=== PATIENT | male | born 1970 ===

== ENCOUNTER 2020-07-15 07:49 | Day surgery (SDC) | payer OTHER ==
[~2020-07-15] VITALS: Ht 182.9 cm; Wt 74.5 kg
[~2020-07-15 07:49] MED LIST: AMLO5 PO; HYDCHL12.5 PO; VERA120 PO
--- NOTE | 2020-07-15 13:24 | NUR ---
REPORT GIVEN TO KAROLYN BURGER
--- NOTE | 2020-07-15 13:36 | NUR ---
ASSUMED CARE AT 1320 A/O DENIES PAIN OR NAUSEA WARM BLANKETS PLACED FOR COMFORT HE DID C/O BEING COLD
--- NOTE | 2020-07-15 14:16 | NUR ---
Patient up to Ambulate independently. Gait steady. Discharge instructions reviewed with patient. Patient verbalizes understanding. Copy given to patient to take home. Patient States Post-Procedure ride home has been arranged. Discharged via wheelchair to private car for ride home.
== END 2020-07-15 14:58 | disposition home or self-care (01) ==
LOC: ORSCMMR 07:49 → ORD 11:30 → ORSCMMR 14:58
PROVIDERS: Surgery
PROC: 0YUA4JZ Supplement Bilateral Inguinal Region with Synthetic Substitute, Percutaneous Endoscopic Approach (ICD-10-PCS; principal; 2020-07-15 09:30)
PROC: 0WQF0ZZ Repair Abdominal Wall, Open Approach (ICD-10-PCS; principal; 2020-07-15 09:30)
DX: K40.20 Bilateral inguinal hernia, without obstruction or gangrene, not specified as recurrent (principal); K42.9 Umbilical hernia without obstruction or gangrene; I10 Essential (primary) hypertension; F17.221 Nicotine dependence, chewing tobacco, in remission; Z79.899 Other long term (current) drug therapy
CPT/HCPCS: A9270; C1727; C1781; J0690; J1100; J1885; J2250; J2370; J2405; J2704; J2710; J3010; J7120

== ENCOUNTER → 2022-10-15 | Outpatient (CLI) | payer OTHER | END | disposition home or self-care (01) | LOC: LAB 13:43 → LAB SHORT 13:43 | DX: J02.9 Acute pharyngitis, unspecified (principal); J06.9 Acute upper respiratory infection, unspecified | CPT/HCPCS: 87081 ==

== ENCOUNTER → 2022-10-24 | Outpatient (CLI) | payer OTHER | END | disposition home or self-care (01) | LOC: PLD 10:06 → LAB SHORT 10:06 | DX: C44.612 Basal cell carcinoma of skin of right upper limb, including shoulder (principal) | CPT/HCPCS: 88305 ==

== ENCOUNTER 2022-11-05 08:27 | Day surgery (SDC) | payer OTHER ==
[~2022-11-05] VITALS: Ht 182.9 cm; Wt 81.1 kg
--- NOTE | 2022-11-05 09:49 | NUR ---
Patient up to Ambulate independently. Gait steady. Discharge instructions reviewed with patient. Patient verbalizes understanding. Copy given to patient to take home. Discharged via wheelchair to private car for ride home.
== END 2022-11-05 09:43 | disposition home or self-care (01) ==
LOC: ORSCSDS 08:27
PROVIDERS: Internal Medicine Gastroenterology
PROC: 0DBH8ZX Excision of Cecum, Via Natural or Artificial Opening Endoscopic, Diagnostic (ICD-10-PCS; principal; 2022-11-05 09:45)
PROC: 0DBP8ZX Excision of Rectum, Via Natural or Artificial Opening Endoscopic, Diagnostic (ICD-10-PCS; principal; 2022-11-05 09:45)
DX: Z12.11 Encounter for screening for malignant neoplasm of colon (principal); D12.0 Benign neoplasm of cecum; K62.1 Rectal polyp; K57.30 Diverticulosis of large intestine without perforation or abscess without bleeding; K64.8 Other hemorrhoids
CPT/HCPCS: 88305; J2704; J7120